=== PATIENT | male | born 1985 | race Caucasian/White ===

== ENCOUNTER 2020-03-28 06:02 | Emergency (ER) | payer SELFPAY ==
[~2020-03-28] VITALS: Ht 172.7 cm; Wt 113.4 kg
[2020-03-28 06:07] VITALS: BP 135/66
--- NOTE | 2020-03-28 06:09 | NUR ---
PT TAKEN TO [facility]. [facility] AT BEDSIDE.
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
--- NOTE | 2020-03-28 06:12 | NUR ---
[facility] AT BEDSIDE.
--- NOTE | 2020-03-28 06:16 | NUR ---
ERMD AT [facility] ASSESSING PT.
[2020-03-28 06:35] VITALS: BP 135/66
--- NOTE | 2020-03-28 06:35 | NUR ---
PATIENT BIB [facility]. PATIENT EXAMINED BY . PATIENT MEDICALLY CLEARED AND RELEASED IN CUSTODY IN STABLE CONDITION. ORIGINAL PRE-BOOK FORM GIVEN TO OFFICER MARIBETH #[id number].
== END 2020-03-28 06:35 ==
LOC: MED 06:02
DX: I10 Essential (primary) hypertension (principal); Z87.74 Personal history of (corrected) congenital malformations of heart and circulatory system; V89.2XXA Person injured in unspecified motor-vehicle accident, traffic, initial encounter; Y93.89 Activity, other specified; Y92.89 Other specified places as the place of occurrence of the external cause; Y99.8 Other external cause status
CPT/HCPCS: 71045; 99283; Q0092